=== PATIENT | female | born 1975 | race American Indian/Alaskan Native ===

== ENCOUNTER 2017-05-18 11:52 | Emergency (ER) | payer MEDICAID ==
[2017-05-18 12:10] VITALS: BP 151/86
[2017-05-18] MEDS ORDERED: Sodium Chloride 0.9% 1,000 ML IV ONE (12:19)
--- NOTE | 2017-05-18 12:20 | EDM.PDOC ---
ED HPI GENERAL MEDICAL PROBLEM - General Chief Complaint: ENT Problem Stated Complaint: [id number] HARD TIME BREATHING Time Seen by Provider: 05/18/17 12:15 Source of Information: Reports: Patient History Limitations: Reports: No Limitations - History of Present Illness INITIAL COMMENTS - FREE TEXT/NARRATIVE: 41 yo [place] Female c/o cough since saturday with runny nose. Pt. admits to smoking 1ppd cigs. Onset Date: 05/13/17 Onset Time: 12:00 Duration: Day(s): Location: Reports: Chest, Generalized Quality: Reports: Ache Severity: Moderate Associated Symptoms: Reports: Cough, cough w sputum Chest Pain Score (Numeric/FACES): 6 - Related Data Allergies Allergy/AdvReac Type Severity Reaction Status Date / Time No Known Allergies Allergy Verified 05/18/17 11:57 Home Meds: Home Meds . 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 Social & Family History - Family History Family Medical History: Noncontributory - Tobacco Use Smoking Status *Q: Current Every Day Smoker Years of Tobacco use: 28 Packs/Tins Daily: 1 - Caffeine Use Caffeine Use: Reports: None - Recreational Drug Use Recreational Drug Use: No ED ROS GENERAL - Review of Systems Review Of Systems: See Below Constitutional: Reports: Chills, Weakness, Fatigue HEENT: Reports: No Symptoms Respiratory: Reports: Cough Cardiovascular: Reports: No Symptoms, Chest Pain Endocrine: Reports: No Symptoms GI/Abdominal: Reports: No Symptoms : Reports: No Symptoms Musculoskeletal: Reports: No Symptoms Skin: Reports: No Symptoms Neurological: Reports: No Symptoms Psychiatric: Reports: No Symptoms Hematologic/Lymphatic: Reports: No Symptoms Immunologic: Reports: No Symptoms ED EXAM, GENERAL - Physical Exam Exam: See Below Exam Limited By: No Limitations General Appearance: Alert, WD/WN, Obese Eye Exam: Bilateral Eye: EOMI Ears: Normal External Exam Ear Exam: Bilateral Ear: TM normal Nose: Normal Inspection, Normal Mucosa Throat/Mouth: Normal Inspection, Normal Lips Head: Atraumatic, Normocephalic Neck: Normal Inspection, Supple Respiratory/Chest: No Respiratory Distress, No Accessory Muscle Use, Rhonchi, Wheezing Cardiovascular: Normal Peripheral Pulses, Regular Rate, Rhythm GI/Abdominal: Normal Bowel Sounds Back Exam: Normal Inspection Extremities: Normal Inspection Neurological: Alert, Oriented, CN II-XII Intact Psychiatric: Normal Affect, Normal Mood Skin Exam: Warm, Dry Lymphatic: No Adenopathy Course - Vital Signs Last Recorded V/S: Last Vital Signs Temp 36.3 C 05/18/17 12:08 Pulse 99 05/18/17 12:08 Resp 20 05/18/17 12:08 BP 151/86 H 05/18/17 12:08 Pulse Ox 92 L 05/18/17 12:08 - Orders/Labs/Meds Orders: Active Orders 24 hr Category Date Time Status RT Aerosol Therapy [RC] ASDIRECTED Care 05/18/17 12:37 Active RT Aerosol Therapy [RC] ASDIRECTED Care 05/18/17 12:38 Active Chest 2V [CR] Urgent Exams 05/18/17 12:19 Ordered Sodium Chloride 0.9% [Normal Saline] 1,000 ml Med 05/18/17 12:19 Active IV .BOLUS Medication Orders Sodium Chloride (Normal Saline) 1,000 mls @ 999 mls/hr IV .BOLUS ONE Stop: 05/18/17 13:19 Last Admin: 05/18/17 12:34 Dose: 999 mls/hr Labs: Laboratory Tests 05/18/17 Range/Units 12:25 WBC 10.2 H (5.0-10.0) 10^3/uL RBC 4.89 (4.2-5.4) 10^6/uL Hgb 14.8 (12.0-16.0) g/dL Hct 45.8 (37.0-47.0) % MCV 93.7 (80-100) fL MCH 30.3 (27.0-34.0) pg MCHC 32.3 L (33.0-35.0) g/dL Plt Count 221 (150-450) 10^3/uL Neut % (Auto) 62.7 (42.2-75.2) % Lymph % (Auto) 26.4 (20.5-50.1) % [place] % (Auto) 7.3 (2-8) % Eos % (Auto) 3.1 H (1.0-3.0) % Baso % (Auto) 0.5 (0.0-1.0) % Meds: Medications Generic Name Dose Route Start Last Admin Trade Name Juan PRN Reason Stop Dose Admin Sodium Chloride 1,000 mls @ 999 mls/hr 05/18/17 12:19 05/18/17 12:34 Normal Saline IV 05/18/17 13:19 999 mls/hr .BOLUS ONE Administration Discontinued Medications Generic Name Dose Route Start Last Admin Trade Name Juan PRN Reason Stop Dose Admin Albuterol/Ipratropium 3 ml 05/18/17 12:37 Duoneb 3.0-0.5 Mg/3 Ml NEB 05/18/17 12:38 ONETIME ONE Albuterol/Ipratropium 3 ml 05/18/17 12:38 Duoneb 3.0-0.5 Mg/3 Ml NEB 05/18/17 12:39 ONETIME ONE Departure - Departure Time of Disposition: 12:41 Disposition: Home, Self-Care 01 Condition: Fair Clinical Impression: Bronchitis, Tobacco abuse disorder - Discharge Information Forms: ED Department Discharge Additional Instructions: Stop Smoking Cigarettes Increase intake of Water and Juice ( No Dairy Products) Take Medication as prescribed only: Zithromax Demond ( 1 pack), Phenergan Plain Syrup ( 4ounces) and ProAir MDI 2 puffs Q 4-6 hours F/U w/ PCP - My Orders Last 24 Hours: My Active Orders 05/18/17 12:19 Chest 2V [CR] Urgent Sodium Chloride 0.9% [Normal Saline] 1,000 ml IV .BOLUS 05/18/17 12:37 RT Aerosol Therapy [RC] ASDIRECTED 05/18/17 12:38 RT Aerosol Therapy [RC] ASDIRECTED - Assessment/Plan Last 24 Hours: My Active Orders 05/18/17 12:19 Chest 2V [CR] Urgent Sodium Chloride 0.9% [Normal Saline] 1,000 ml IV .BOLUS 05/18/17 12:37 RT Aerosol Therapy [RC] ASDIRECTED 05/18/17 12:38 RT Aerosol Therapy [RC] ASDIRECTED
[2017-05-18] MEDS ORDERED: Albuterol/Ipratropium 3.0-0.5 MG/3 ML Neb Soln NEB ONE ×2 (12:37→12:38)
== END 2017-05-18 13:31 | disposition home or self-care (01) ==
LOC: DL.ED 11:52
DX: J40 Bronchitis, not specified as acute or chronic (principal); F17.210 Nicotine dependence, cigarettes, uncomplicated
CPT/HCPCS: 36415; 71020; 85025; 94640; 96360; 99283; J7030

== ENCOUNTER 2018-04-10 18:50 | Emergency (ER) | payer MEDICAID ==
[2018-04-10 21:59] VITALS: BP 145/88
--- NOTE | 2018-04-10 22:02 | EDM.PDOC ---
ED HPI GENERAL MEDICAL PROBLEM - General Chief Complaint: Wound Recheck Stated Complaint: ABD PRESSURE AFTER SURG [id number] Time Seen by Provider: 04/10/18 19:30 Source of Information: Reports: Patient History Limitations: Reports: No Limitations - History of Present Illness INITIAL COMMENTS - FREE TEXT/NARRATIVE: C/o low abdominal pain presure, increased frequency of voiding. No burning with urination. Hx vag hyst 2 weeks ago. Reports on boat all weekend pain worse since. No fever or chills. No change in vaginal spotting. 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 Lower Abdomen Pain Score (Numeric/FACES): 7 - Related Data Allergies Allergy/AdvReac Type Severity Reaction Status Date / Time No Known Allergies Allergy Verified 04/10/18 19:17 Home Meds: Home Meds . 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 ED EXAM, GENERAL - Physical Exam Exam: See Below Exam Limited By: No Limitations General Appearance: Alert, No Apparent Distress Eye Exam: Bilateral Eye: EOMI Ears: Normal External Exam Nose: Normal Inspection Throat/Mouth: Normal Inspection Head: Atraumatic, Normocephalic Neck: Normal Inspection Respiratory/Chest: No Respiratory Distress, Lungs Clear, Normal Breath Sounds Cardiovascular: Normal Peripheral Pulses, Regular Rate, Rhythm GI/Abdominal: Normal Bowel Sounds, Soft, Tender (mild supropubic with palpation , greater pain with movment) (Female) Exam: Normal External Exam, Normal Speculum Exam. No: Vaginal Bleeding (none noted in canal), Vaginal Discharge Extremities: Normal Inspection Neurological: Alert, Oriented Skin Exam: Warm, Dry, Intact (surgical lap sites healing, intact no redness) Course - Vital Signs Last Recorded V/S: Last Vital Signs Temp 97.8 F 04/10/18 21:58 Pulse 74 04/10/18 21:58 Resp 16 04/10/18 21:58 BP 145/88 H 04/10/18 21:58 Pulse Ox 98 04/10/18 21:58 - Orders/Labs/Meds Labs: Laboratory Tests 04/10/18 Range/Units 20:13 Urine Color Yellow (YELLOW) Urine Appearance Slightly cloudy (CLEAR) Urine pH 6.5 (5.0-9.0) Ur Specific [place] 1.010 (1.005-1.030) Urine Protein Negative (NEGATIVE) Urine Glucose (UA) Negative (NEGATIVE) Urine Ketones Negative (NEGATIVE) Urine Occult Blood Negative (NEGATIVE) Urine Nitrite Negative (NEGATIVE) Urine Bilirubin Negative (NEGATIVE) Urine Urobilinogen 0.2 (0.2-1.0) mg/dL Ur Leukocyte Esterase Negative (NEGATIVE) Urine RBC Not seen /HPF Urine WBC 0-5 (0-5/HPF) /HPF Ur Epithelial Cells Few /HPF Urine Bacteria Few (0-FEW/HPF) /HPF Departure - Departure Time of Disposition: 21:55 Disposition: Home, Self-Care 01 Condition: Good Clinical Impression: S/P vaginal hysterectomy, Abdominal pain - Discharge Information Instructions: Vaginal Hysterectomy, Care After Forms: ED Department Discharge Additional Instructions: rest light activity follow with gynecologist tomorrow urgent follow up fever, bloating or increased vaginal bleeding
== END 2018-04-10 22:02 | disposition home or self-care (01) ==
LOC: DL.ED 18:50
DX: R10.30 Lower abdominal pain, unspecified (principal); F17.210 Nicotine dependence, cigarettes, uncomplicated; Z90.710 Acquired absence of both cervix and uterus
CPT/HCPCS: 81001; 99284

== ENCOUNTER 2019-10-22 19:21 | Emergency (ER) | payer BC, MEDICAID ==
[2019-10-22] MEDS ORDERED: Acetaminophen/HYDROcodone 325-10 MG Tab PO ONE (19:22)
--- NOTE | 2019-10-22 19:38 | EDM.PDOC ---
ED HPI GENERAL MEDICAL PROBLEM - General Stated Complaint: HURTS TO TOUCH CHEST Time Seen by Provider: 10/22/19 19:35 Source of Information: Reports: Patient History Limitations: Reports: No Limitations - History of Present Illness INITIAL COMMENTS - FREE TEXT/NARRATIVE: onset yesterday while watching TV. constant and worse when pushes on chest. appetite normal. denies trauma. Mid-Anterior Chest Pain Score (Numeric/FACES): 7 - Related Data Allergies Allergy/AdvReac Type Severity Reaction Status Date / Time No Known Allergies Allergy Verified 04/10/18 19:17 Home Meds: Home Meds . 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 ED EXAM, GENERAL - Physical Exam Exam: See Below Exam Limited By: No Limitations General Appearance: Alert, WD/WN, No Apparent Distress Ears: Hearing Grossly Normal Throat/Mouth: Normal Voice, No Airway Compromise Head: Atraumatic Neck: Non-Tender, Full Range of Motion Respiratory/Chest: No Respiratory Distress, No Accessory Muscle Use, Rhonchi, Other (mild sternal tenderness to palpation). No: Decreased Breath Sounds Cardiovascular: Regular Rate, Rhythm GI/Abdominal: Soft, Non-Tender Neurological: Alert, Oriented, Normal Cognition, Normal Gait, No Motor/Sensory Deficits Psychiatric: Normal Affect, Normal Mood Skin Exam: Warm, Dry, Normal Color Lymphatic: No Adenopathy Course - Vital Signs Last Recorded V/S: Last Vital Signs Temp 36.0 C 10/22/19 19:26 Pulse 94 10/22/19 19:26 Resp 18 10/22/19 19:26 BP 159/91 H 10/22/19 19:26 Pulse Ox 98 10/22/19 19:26 - Orders/Labs/Meds Orders: Active Orders 24 hr Category Date Time Status Chest 1V Frontal [CR] Urgent Exams 10/22/19 19:32 Taken Labs: Laboratory Tests 10/22/19 10/22/19 Range/Units 19:41 19:41 WBC 14.5 H (5.0-10.0) 10^3/uL RBC 5.31 (4.2-5.4) 10^6/uL Hgb 15.8 (12.0-16.0) g/dL Hct 47.6 H (37.0-47.0) % MCV 89.6 D (80-100) fL MCH 29.8 (27.0-34.0) pg MCHC 33.2 (33.0-35.0) g/dL Plt Count 248 (150-450) 10^3/uL Neut % (Auto) 61.7 (42.2-75.2) % Lymph % (Auto) 25.3 (20.5-50.1) % [place] % (Auto) 10.1 H (2-8) % Eos % (Auto) 2.1 (1.0-3.0) % Baso % (Auto) 0.8 (0.0-1.0) % Add Manual Diff Yes Neutrophils % (Manual) 64 (42-75) % Lymphocytes % (Manual) 24 (20-50) % Monocytes % (Manual) 10 H (2-8) % Eosinophils % (Manual) 2 (1-3) % Sodium 137 (135-145) mmol/L Potassium 3.5 L (3.6-5.0) mmol/L Chloride 103 (101-111) mmol/L Carbon Dioxide 25.0 (21.0-31.0) mmol/L Anion Gap 12.5 BUN 11 (7-18) mg/dL Creatinine 0.5 L (0.6-1.3) mg/dL Est Cr Clr Drug Dosing 126.57 mL/min Estimated GFR (MDRD) > 60 BUN/Creatinine Ratio 22.00 Glucose 127 H (74-105) mg/dL Calcium 8.9 (8.4-10.2) mg/dl Total Bilirubin 0.5 (0.2-1.0) mg/dL AST 17 (10-42) IU/L ALT 18 (10-60) IU/L Alkaline Phosphatase 74 (42-121) IU/L Troponin I < 0.02 (0.00-0.02) ng/ml Total Protein 7.4 (6.7-8.2) g/dl Albumin 4.1 (3.2-5.5) g/dl Globulin 3.3 Albumin/Globulin Ratio 1.24 - Re-Assessments/Exams Free Text/Narrative Re-Assessment/Exam: 10/22/19 20:29 results discussed with pt who is feeling ok right now. Departure - Departure Time of Disposition: 20:30 Disposition: Home, Self-Care 01 Condition: Good Clinical Impression: Chest pain, atypical Instructions: Nonspecific Chest Pain, [id number] Forms: ED Department Discharge Additional Instructions: 1) avoid fatty fried oily spicy foods 2) see clinic tomorrow for GALL BLADDER ULTRASOUND rx togo; norco 10 x 1 Sepsis Event Note - Focused Exam Vital Signs: Vital Signs Temp Pulse Resp BP Pulse Ox 10/22/19 19:26 36.0 C 94 18 159/91 H 98 Date Exam was Performed: 10/22/19 Time Exam was Performed: 20:29 - My Orders Last 24 Hours: My Active Orders 10/22/19 19:32 Chest 1V Frontal [CR] Urgent - Assessment/Plan Last 24 Hours: My Active Orders 10/22/19 19:32 Chest 1V Frontal [CR] Urgent
[2019-10-22 20:02] VITALS: BP 159/91; PULSE 94
[2019-10-22 20:10] LABS: ANION GAP 12.5; CHLORIDE,CL 103 mmol/L (101-111); SODIUM,NA 137 mmol/L (135-145)
[2019-10-22] MEDS ORDERED: Acetaminophen/HYDROcodone 325-10 MG Tab ONE (20:41)
== END 2019-10-22 20:47 | disposition home or self-care (01) ==
LOC: DL.ED 19:21
DX: R07.89 Other chest pain (principal); Z90.710 Acquired absence of both cervix and uterus
CPT/HCPCS: 36415; 71045; 80053; 84484; 85025; 99285; A9270

== ENCOUNTER 2019-11-30 01:43 | Emergency (ER) | payer BC ==
[2019-11-30 02:03] VITALS: BP 168/92; PULSE 86
--- NOTE | 2019-11-30 02:04 | EDM.PDOC ---
ED HPI GENERAL MEDICAL PROBLEM - General Stated Complaint: NEEDS RING CUT OFF OF JERRICA. LEFT RING FINGER Time Seen by Provider: 11/30/19 01:50 Source of Information: Reports: Patient, RN, RN Notes Reviewed History Limitations: Reports: No Limitations - History of Present Illness INITIAL COMMENTS - FREE TEXT/NARRATIVE: patient to ER with complaint of swelling of hands, and ring tight on the left ring finger. Patient states that she generally takes her rings off before she goes to bed. Patient states the pain in the left finger awoke her from sleep. Onset: Today, Sudden - Related Data Allergies Allergy/AdvReac Type Severity Reaction Status Date / Time No Known Allergies Allergy Verified 04/10/18 19:17 Home Meds: Home Meds . 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 ED EXAM, GENERAL - Physical Exam Exam: See Below Exam Limited By: No Limitations General Appearance: Alert, WD/WN, Mild Distress Eye Exam: Bilateral Eye: EOMI, Normal Inspection Ears: Normal External Exam, Hearing Grossly Normal Nose: Normal Inspection Throat/Mouth: Normal Inspection, Normal Voice, No Airway Compromise Head: Atraumatic, Normocephalic Neck: Normal Inspection Respiratory/Chest: No Respiratory Distress, Lungs Clear, Normal Breath Sounds, No Accessory Muscle Use Cardiovascular: Normal Peripheral Pulses, Regular Rate, Rhythm, No Gallop, No JVD, No Murmur, No Rub, Other (mild swelling of the fingers) Peripheral Pulses: 2+: Radial (L), Radial (R) GI/Abdominal: Normal Bowel Sounds, Soft, Non-Tender (Female) Exam: Deferred Rectal (Female) Exam: Deferred Back Exam: Normal Inspection, Full Range of Motion Extremities: Normal Inspection, Normal Range of Motion, Non-Tender, Normal Capillary Refill, No Pedal Edema Neurological: Alert, Oriented, CN II-XII Intact, Normal Cognition, Normal Gait, Normal Reflexes, No Motor/Sensory Deficits Psychiatric: Normal Affect, Normal Mood Skin Exam: Warm, Dry, Intact, Normal Color, No Rash Lymphatic: No Adenopathy ED GENERAL MEDICAL PROCEDURES - Additional/Other Procedure(s) Other (Free Text) Procedure(s): wedding ring and band removed from the left ring finger with manual ring cutter. No complications. Departure - Departure Time of Disposition: 02:03 Disposition: Home, Self-Care 01 Condition: Good Clinical Impression: Ring or other jewelry causing external constriction, initial encounter - Discharge Information *PRESCRIPTION DRUG MONITORING PROGRAM REVIEWED*: No *COPY OF PRESCRIPTION DRUG MONITORING REPORT IN PATIENT CHELSEA: No
== END 2019-11-30 02:14 | disposition home or self-care (01) ==
LOC: DL.ED 01:43
DX: S60.445A External constriction of left ring finger, initial encounter (principal); W49.04XA Ring or other jewelry causing external constriction, initial encounter
CPT/HCPCS: 99283

== ENCOUNTER 2020-03-18 23:19 | Emergency (ER) | payer BC ==
[2020-03-19 00:02] LABS: ANION GAP 11.6 mEq/L (7-13); CHLORIDE,CL 104 mmol/L (98-107); SODIUM,NA 138 mmol/L (136-145)
[2020-03-19] MEDS ORDERED: Iopamidol 612 MG/ML 100 ML Bottle IVPUSH ONE (00:16)
[2020-03-19] MEDS ORDERED: Ondansetron 4 MG/2 ML SDV IVPUSH ONE (00:16)
[2020-03-19] MEDS ORDERED: Sodium Chloride 0.9% 1,000 ML IV ONE (00:16)
--- NOTE | 2020-03-19 01:07 | CT ---
PROCEDURE INFORMATION: Exam: CT Abdomen And Pelvis With Contrast Exam date and time: 03/19/2020 12:47 AM Age: 44 years old Clinical indication: Other: Pain; Additional info: Mid to rlq abdominal pain wbc 11 TECHNIQUE: Imaging protocol: Computed tomography of the abdomen and pelvis with intravenous contrast. Radiation optimization: All CT scans at this facility use at least one of these dose optimization techniques: automated exposure control; mA and/or kV adjustment per patient size (includes targeted exams where dose is matched to clinical indication); or iterative reconstruction. Contrast material: [id number]; Contrast volume: 100 ml; Contrast route: INTRAVENOUS (IV); COMPARISON: CT Abdomen Pelvis w Cont 05/25/2016 3:57 PM FINDINGS: Liver: Normal. No mass. Gallbladder and bile ducts: Status post cholecystectomy. Pancreas: Normal. No ductal dilation. Spleen: Normal. No splenomegaly. Adrenals: Normal. No mass. Kidneys and ureters: Normal. No hydronephrosis. Stomach and bowel: Unremarkable. No obstruction. No mucosal thickening. Appendix: Normal appendix right lower quadrant Intraperitoneal space: Moderate free fluid in the pelvis with possible left-sided pelvic mass measuring approximately 4.5 cm. Pelvic ultrasound suggested. Vasculature: Unremarkable. No abdominal aortic aneurysm. Lymph nodes: Unremarkable. No enlarged lymph nodes. Bladder: Unremarkable as visualized. Reproductive: Status post hysterectomy Bones/joints: Unremarkable. No acute fracture. Soft tissues: Unremarkable. IMPRESSION: 1. Normal appendix right lower quadrant 2. Status post hysterectomy 3. Moderate free fluid in the pelvis with possible left-sided pelvic mass measuring approximately 4.5 cm. Pelvic ultrasound suggested.
[2020-03-19] MEDS ORDERED: Ketorolac 30 MG/ML SDV IVPUSH ONE (01:24)
--- NOTE | 2020-03-19 01:27 | EDM.PDOC ---
ED HPI GENERAL MEDICAL PROBLEM - General Chief Complaint: Abdominal Pain Stated Complaint: ABDOMINAL PAIN Time Seen by Provider: 03/18/20 23:35 Source of Information: Reports: Patient History Limitations: Reports: No Limitations - History of Present Illness INITIAL COMMENTS - FREE TEXT/NARRATIVE: ED with c/o sudden onset mid to right sharp abdominal pain. Started while attempting to void. Hx endometriosis. Still has appendix. No hx constipation. No fever chills, No nausea or vomiting. No diarrhea. No cough. Has had remote ovarian cysts and felt slightly similar. Lower Abdomen Pain Score (Numeric/FACES): 7 - Related Data Allergies Allergy/AdvReac Type Severity Reaction Status Date / Time No Known Allergies Allergy Verified 03/18/20 23:47 Home Meds: Home Meds . [No Known Home Meds] 05/18/17 [History] Past Medical History - Past Health History Medical/Surgical History: Denies Medical/Surgical History HEENT History: Reports: Other (See Below) Other HEENT History: glaucoma surg. 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 ED EXAM, RENAL/ - Physical Exam Exam: See Below Exam Limited By: No Limitations General Appearance: Alert, No Apparent Distress Ears: Normal External Exam Nose: Normal Inspection Throat/Mouth: Normal Inspection Neck: Normal Inspection Respiratory/Chest: No Respiratory Distress, Lungs Clear, Normal Breath Sounds Cardiovascular: Regular Rate, Rhythm GI/Abdominal: Normal Bowel Sounds, Soft, Tender (suprapubic and Mild RLQ, No distension. ). No: Guarding, Rebound Extremities: Normal Range of Motion Neurological: Alert, Oriented, Normal Cognition, Normal Gait Psychiatric: Normal Affect Skin Exam: Warm, Dry, Intact, Normal Color Course - Vital Signs Last Recorded V/S: Last Vital Signs Temp 97.6 F 03/19/20 01:30 Pulse 87 03/19/20 01:30 Resp 19 03/19/20 01:30 BP 129/78 03/19/20 01:30 Pulse Ox 100 03/19/20 01:30 - Orders/Labs/Meds Labs: Laboratory Tests 03/18/20 03/18/20 03/18/20 Range/Units 23:34 23:37 23:37 WBC 11.6 H (5.0-10.0) 10^3/uL RBC 5.18 (4.2-5.4) 10^6/uL Hgb 15.9 (12.0-16.0) g/dL Hct 47.3 H (37.0-47.0) % MCV 91.3 (80-100) fL MCH 30.7 (27.0-34.0) pg MCHC 33.6 (33.0-35.0) g/dL Plt Count 237 (150-450) 10^3/uL Neut % (Auto) 54.8 (42.2-75.2) % Lymph % (Auto) 33.9 (20.5-50.1) % [place] % (Auto) 7.4 (2-8) % Eos % (Auto) 3.2 H (1.0-3.0) % Baso % (Auto) 0.7 (0.0-1.0) % Sodium 138 (136-145) mmol/L Potassium 3.6 (3.5-5.1) mmol/L Chloride 104 (98-107) mmol/L Carbon Dioxide 26 (21-32) mmol/L Anion Gap 11.6 (7-13) mEq/L BUN 8 (7-18) mg/dL Creatinine 0.72 (0.55-1.02) mg/dL Est Cr Clr Drug Dosing 87.90 mL/min Estimated GFR (MDRD) > 60 BUN/Creatinine Ratio 11.1 (No establ ref range) Glucose 126 H (74-99) mg/dL Calcium 8.5 (8.5-10.1) mg/dL Total Bilirubin 0.4 (0.2-1.0) mg/dL AST 13 L (15-37) U/L ALT 23 (14-59) U/L Alkaline Phosphatase 79 (46-116) U/L Total Protein 7.1 (6.4-8.2) g/dL Albumin 3.4 (3.4-5.0) g/dL Globulin 3.7 Albumin/Globulin Ratio 0.9 Amylase 34 (25-115) U/L Lipase 97 (73-393) U/L HCG, Qual Negative Urine Color Yellow (YELLOW) Urine Appearance Slightly cloudy (CLEAR) Urine pH 5.5 (5.0-9.0) Ur Specific [place] >= 1.030 (1.005-1.030) Urine Protein Negative (NEGATIVE) Urine Glucose (UA) Negative (NEGATIVE) Urine Ketones Negative (NEGATIVE) Urine Occult Blood Trace-intact H (NEGATIVE) Urine Nitrite Negative (NEGATIVE) Urine Bilirubin Negative (NEGATIVE) Urine Urobilinogen 0.2 (0.2-1.0) mg/dL Ur Leukocyte Esterase Negative (NEGATIVE) Urine RBC 5-10 H /HPF Urine WBC 0-5 (0-5/HPF) /HPF Ur Epithelial Cells Few (NOT SEEN) /HPF Amorphous Sediment Rare (NOT SEEN) /HPF Urine Bacteria Rare (0-FEW/HPF) /HPF Urine Mucus Moderate H (NOT SEEN) /LPF Ethyl Alcohol < 3 (0) mg/dL Meds: Medications Discontinued Medications Generic Name Dose Route Start Last Admin Trade Name Freq PRN Reason Stop Dose Admin Sodium Chloride 1,000 mls @ 999 mls/hr 03/19/20 00:16 03/19/20 00:28 Normal Saline IV 03/19/20 01:16 999 mls/hr .BOLUS ONE Administration Iopamidol 100 ml 03/19/20 00:16 03/19/20 00:27 Isovue-300 (61%) IVPUSH 03/19/20 00:17 100 ml ONETIME ONE Administration Ketorolac Tromethamine 30 mg 03/19/20 01:24 03/19/20 01:26 Toradol IVPUSH 03/19/20 01:25 30 mg ONETIME ONE Administration Ondansetron HCl 4 mg 03/19/20 00:16 03/19/20 00:27 Zofran IVPUSH 03/19/20 00:17 4 mg ONETIME ONE Administration - Re-Assessments/Exams Free Text/Narrative Re-Assessment/Exam: 03/19/20 06:09 Pain improving, still present not as severe, Results reviewed with patient. Departure - Departure Time of Disposition: 01:24 Disposition: Home, Self-Care 01 Condition: Good Clinical Impression: Abdominal pain Qualifiers: Abdominal location: lower abdomen, unspecified Qualified Code(s): R10.30 - Lower abdominal pain, unspecified - Discharge Information *PRESCRIPTION DRUG MONITORING PROGRAM REVIEWED*: No *COPY OF PRESCRIPTION DRUG MONITORING REPORT IN PATIENT [place]: No Instructions: Abdominal Pain, Adult, Dzen-[id number] Referrals: Jacque Ku MD [Primary Care Provider] - Forms: ED Department Discharge Additional Instructions: Clinic follow up this week light activity No heavy lifting alternate tylenol and ibuprofen every 4 hours as needed for discomfort urgent follow up increased pain, fever chills or repeated vomiting Sepsis Event Note (ED) - Evaluation Sepsis Screening Result: No Definite Risk - Focused Exam Vital Signs: Vital Signs Temp Pulse Resp BP Pulse Ox 03/19/20 01:30 97.6 F 87 19 129/78 100 03/19/20 00:29 97.8 F 90 19 127/76 97 03/18/20 23:34 97.6 F 91 19 128/81 100
[2020-03-19 01:31] VITALS: BP 129/78; PULSE 87
== END 2020-03-19 01:43 | disposition home or self-care (01) ==
LOC: DL.ED 23:19
DX: R10.31 Right lower quadrant pain (principal); F17.210 Nicotine dependence, cigarettes, uncomplicated; Z90.49 Acquired absence of other specified parts of digestive tract; Z90.710 Acquired absence of both cervix and uterus; Z98.890 Other specified postprocedural states
CPT/HCPCS: 36415; 74177; 80053; 80307; 81001; 82150; 83690; 84703; 85025; 96374; 96375; 99284; J1885; J2405; J7030; Q9967

== ENCOUNTER 2021-07-21 22:59 | Emergency (ER) | payer BC ==
[2021-07-21] MEDS ORDERED: Aspirin 81 MG Tab.Chew PO ONE (23:08)
[2021-07-21 23:14] VITALS: BP 153/85; PULSE 72
--- NOTE | 2021-07-21 23:32 | EDM.PDOC ---
ED HPI GENERAL MEDICAL PROBLEM - General Chief Complaint: Chest Pain Stated Complaint: CHEST PAIN, BLOOD PRESSURE UP Time Seen by Provider: 07/21/21 23:15 Source of Information: Reports: Patient History Limitations: Reports: No Limitations - History of Present Illness INITIAL COMMENTS - FREE TEXT/NARRATIVE: ED with c/o achest and back pain since am. Reports hx high blood pressure, Stated forgot to take morning atenolol, took at 130pm, BP 170's then. No shortness of breath no nausea, describes as pressure. Reports recent stress with multiple family members passing recently. Smoker. 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 ED EXAM, GENERAL - Physical Exam Exam: See Below Exam Limited By: No Limitations General Appearance: Alert, Anxious Eye Exam: Bilateral Eye: EOMI Ears: Normal External Exam, Hearing Grossly Normal Nose: Normal Inspection Throat/Mouth: Normal Inspection Head: Atraumatic, Normocephalic Neck: Full Range of Motion Respiratory/Chest: No Respiratory Distress, Lungs Clear Cardiovascular: Normal Peripheral Pulses, Regular Rate, Rhythm, No Murmur GI/Abdominal: Normal Bowel Sounds, Soft, Non-Tender Back Exam: Normal Inspection Extremities: Normal Inspection Neurological: Alert, Oriented, Normal Cognition Psychiatric: Anxious Skin Exam: Warm, Dry, Intact, Normal Color #1 Interpretation EKG Date: 07/21/21 Time: 23:05 Rhythm: NSR Rate (Beats/Min): 76 [place]: Normal P-Wave: Present QRS: Normal ST-T: Normal Comparison: NA - No Prior EKG Course - Vital Signs Last Recorded V/S: Last Vital Signs Temp 97.6 F 07/21/21 23:13 Pulse 72 07/21/21 23:13 Resp 20 07/21/21 23:13 BP 153/85 H 07/21/21 23:13 Pulse Ox 98 07/21/21 23:13 - Orders/Labs/Meds Labs: Laboratory Tests 07/21/21 07/21/21 07/22/21 Range/Units 23:22 23:22 01:03 WBC 12.6 H (5.0-10.0) 10^3/uL RBC 4.81 (4.2-5.4) 10^6/uL Hgb 14.7 (12.0-16.0) g/dL Hct 45.2 (37.0-47.0) % MCV 94.0 (80-100) fL MCH 30.6 (27.0-34.0) pg MCHC 32.5 L (33.0-35.0) g/dL Plt Count 230 (150-450) 10^3/uL Neut % (Auto) 54.9 (42.2-75.2) % Lymph % (Auto) 33.4 (20.5-50.1) % [place] % (Auto) 8.2 H (2-8) % Eos % (Auto) 2.9 (1.0-3.0) % Baso % (Auto) 0.6 (0.0-1.0) % Sodium 140 (136-145) mmol/L Potassium 3.5 (3.5-5.1) mmol/L Chloride 103 (98-107) mmol/L Carbon Dioxide 28 (21-32) mmol/L Anion Gap 12.5 (7-13) mEq/L BUN 10 (7-18) mg/dL Creatinine 0.76 (0.55-1.02) mg/dL Est Cr Clr Drug Dosing 82.42 mL/min Estimated GFR (MDRD) > 60 BUN/Creatinine Ratio 13.2 (No establ ref range) Glucose 128 H (70-99) mg/dL Calcium 8.3 L (8.5-10.1) mg/dL Total Bilirubin 0.3 (0.2-1.0) mg/dL AST 12 L (15-37) U/L ALT 22 (14-59) U/L Alkaline Phosphatase 89 (46-116) U/L Troponin I High Sens < 4 < 4 (<=51) pg/mL B-Natriuretic Peptide 5 (0-100) pg/ml Total Protein 6.9 (6.4-8.2) g/dL Albumin 3.2 L (3.4-5.0) g/dL Globulin 3.7 Albumin/Globulin Ratio 0.86 Amylase 38 (25-115) U/L Lipase 117 (73-393) U/L Meds: Medications Discontinued Medications Generic Name Dose Route Start Last Admin Trade Name Freq PRN Reason Stop Dose Admin Aspirin 324 mg 07/21/21 23:08 07/21/21 23:12 Aspirin 81 Mg Tab.Chew PO 07/21/21 23:09 324 mg ONETIME ONE Administration Departure - Departure Time of Disposition: 01:48 Disposition: Home, Self-Care 01 Condition: Good Clinical Impression: Situational anxiety, Non-cardiac chest pain Hypertension Qualifiers: Hypertension type: primary hypertension Qualified Code(s): I10 - Essential (primary) hypertension Instructions: Nonspecific Chest Pain, Adult, Managing Anxiety, Adult Forms: ED Department Discharge Additional Instructions: take blood pressure medication as prescribed decrease or stop smoking clinic follow up next week decrease caffeine bland diet Sepsis Event Note (ED) - Evaluation Sepsis Screening Result: No Definite Risk - Focused Exam Vital Signs: Vital Signs Temp Pulse Resp BP Pulse Ox 07/21/21 23:13 97.6 F 72 20 153/85 H 98
[2021-07-21 23:50] LABS: ANION GAP 12.5 mEq/L (7-13); CHLORIDE,CL 103 mmol/L (98-107); SODIUM,NA 140 mmol/L (136-145)
--- NOTE | 2021-07-22 00:59 | CR ---
PROCEDURE INFORMATION: Exam: XR Chest Exam date and time: 07/21/2021 11:18 PM Age: 45 years old Clinical indication: Other: Chest pain TECHNIQUE: Imaging protocol: XR of the chest. Views: 1 view. COMPARISON: CR Chest 1V Frontal 10/22/2019 8:06 PM FINDINGS: Lungs: No suspicious pulmonary nodules or areas of lung consolidation. Pleural spaces: Unremarkable. No pleural effusion. No pneumothorax. Heart/Mediastinum: Unremarkable. No cardiomegaly. Bones/joints: Age appropriate. IMPRESSION: 1. No active disease of the chest. 2. No significant interval change when compared to the CR Chest 1V Frontal 10/22/2019 8:06 PM.
== END 2021-07-22 02:06 | disposition home or self-care (01) ==
LOC: DL.ED 22:59
DX: R07.9 Chest pain, unspecified (principal); F41.9 Anxiety disorder, unspecified; I10 Essential (primary) hypertension; Z72.0 Tobacco use
CPT/HCPCS: 36415; 71045; 80053; 82150; 83690; 83880; 84484; 85025; 93005; 99285-25; A9270-GY

== ENCOUNTER 2021-09-25 19:56 | Emergency (ER) | payer BC ==
[2021-09-25] MEDS ORDERED: Cyclobenzaprine 10 MG Tab PO ONE (19:57)
[2021-09-25] MEDS ORDERED: Ibuprofen 600 MG Tab PO ONE (19:57)
[2021-09-25] MEDS ORDERED: fentaNYL 100 MCG/2 ML SDV IM ONE (21:10)
[2021-09-25 22:13] VITALS: BP 132/68; PULSE 64
[2021-09-25] MEDS ORDERED: Ibuprofen 600 MG Tab ONE (22:27)
[2021-09-25] MEDS ORDERED: Cyclobenzaprine 10 MG Tab ONE (22:28)
== END 2021-09-25 22:43 | disposition home or self-care (01) ==
LOC: DL.ED 19:56
DX: S16.1XXA Strain of muscle, fascia and tendon at neck level, initial encounter (principal); S00.83XA Contusion of other part of head, initial encounter; M25.551 Pain in right hip; I10 Essential (primary) hypertension; Z88.5 Allergy status to narcotic agent; Z72.0 Tobacco use; W18.39XA Other fall on same level, initial encounter
CPT/HCPCS: 70450; 70486; 72125; 72192; 73130; 99284; A9270

== ENCOUNTER 2022-02-06 12:20 | Emergency (ER) | payer BC ==
[2022-02-06 12:48] VITALS: BP 114/92; PULSE 96
[2022-02-06] MEDS ORDERED: Sodium Chloride 0.9% 10 ML Syringe FLUSH PRN (13:28)
[2022-02-06] MEDS ORDERED: Ketorolac 30 MG/ML SDV IVPUSH ONE (14:04)
[2022-02-06] MEDS ORDERED: diphenhydrAMINE 50 MG/ML SDV IVPUSH ONE (14:04)
[2022-02-06] MEDS ORDERED: Sodium Chloride 0.9% 1,000 ML IV ONE (14:05)
[2022-02-06 14:06] LABS: ANION GAP 9.5 mEq/L (7-13); CHLORIDE,CL 105 mmol/L (98-107); SODIUM,NA 140 mmol/L (136-145)
== END 2022-02-06 16:46 | disposition home or self-care (01) ==
LOC: DL.ED 12:20
DX: R51.9 Headache, unspecified (principal); H53.8 Other visual disturbances; I10 Essential (primary) hypertension; Z88.5 Allergy status to narcotic agent; Z72.0 Tobacco use
CPT/HCPCS: 36415; 70450; 80053; 83735; 85025; 86140; 96374; 96375; 99283; 99284-25; J1200; J1885; J7030

== ENCOUNTER 2023-05-17 22:52 | Emergency (ER) | payer BC ==
[2023-05-17] MEDS ORDERED: Sodium Chloride 0.9% 10 ML Syringe FLUSH PRN (23:07)
[2023-05-17] MEDS ORDERED: Aspirin 81 MG Tab.Chew PO ONE (23:07)
[2023-05-17] MEDS ORDERED: Nitroglycerin 0.4 MG Tab.SL SL ONE (23:08)
[2023-05-17 23:14] LABS: BASOPHILS PERCENT AUTO 0.7 % (0.0-1.0); EOSINOPHILS PERCENT AUTO 2.2 % (1.0-3.0); HEMATOCRIT 46.7 % (37.0-47.0); HEMOGLOBIN 15.5 g/dL (12.0-16.0); LYMPHOCYTES PERCENT AUTO 40.8 % (20.5-50.1); MEAN CORPUSCULAR HEMOGLOBIN 30.7 pg (27.0-34.0); MEAN CORPUSCULAR HGB CONC 33.2 g/dL (33.0-35.0); MEAN CORPUSCULAR VOLUME 92.5 fL (80-100); MONOCYTES PERCENT AUTO 7.6 % (2-8); NEUTROPHILS PERCENT AUTO 48.7 % (42.2-75.2); PLATELET COUNT,PLT 234 10^3/uL (150-450); RED BLOOD CELL COUNT 5.05 10^6/uL (4.2-5.4); WHITE BLOOD CELL COUNT,WBC 12.6 10^3/uL (5.0-10.0)
[2023-05-17 23:34] LABS: A/G RATIO 0.9; ALBUMIN 3.5 g/dL (3.4-5.0); ANION GAP 15.1 mEq/L (7-13); BILIRUBIN TOTAL 0.3 mg/dL (0.2-1.0); CALCIUM 8.7 mg/dL (8.5-10.1); CREATININE 0.82 mg/dL (0.55-1.02); EST CRCL DRUG DOSING (CG) 74.81 mL/min; MAGNESIUM 1.9 mg/dL (1.8-2.4); POTASSIUM,K 3.1 mmol/L (3.5-5.1); PROTEIN TOTAL,TP 7.3 g/dL (6.4-8.2)
[2023-05-18] MEDS ORDERED: Potassium Chloride 10 MEQ Tab.ER PO ONE (01:59)
[2023-05-18 02:34] VITALS: BP 124/76; PULSE 70
== END 2023-05-18 02:22 | disposition home or self-care (01) ==
LOC: DL.ED 22:52
DX: I16.0 Hypertensive urgency (principal); I10 Essential (primary) hypertension; R07.89 Other chest pain; E87.6 Hypokalemia; F17.210 Nicotine dependence, cigarettes, uncomplicated; Z88.5 Allergy status to narcotic agent
CPT/HCPCS: 36415; 80053; 83735; 84484; 85025; 93005; 99285; A9270; 93010; 99284; J3490

== ENCOUNTER 2024-06-25 17:29 | Emergency (ER) | payer BC ==
[2024-06-25 18:52] VITALS: BP 152/95; PULSE 80
== END 2024-06-25 18:49 | disposition left against medical advice (07) ==
LOC: DL.ED 17:29
DX: Z53.21 Procedure and treatment not carried out due to patient leaving prior to being seen by health care provider (principal)

== ENCOUNTER 2024-07-21 12:10 | Emergency (ER) | payer BC ==
[2024-07-21] MEDS ORDERED: Sodium Chloride 0.9% 10 ML Syringe FLUSH PRN (12:23)
[2024-07-21 12:41] LABS: BASOPHILS PERCENT AUTO 0.5 % (0.0-1.0); EOSINOPHILS PERCENT AUTO 2.2 % (1.0-3.0); HEMATOCRIT 47.6 % (37.0-47.0); HEMOGLOBIN 15.3 g/dL (12.0-16.0); LYMPHOCYTES PERCENT AUTO 39.9 % (20.5-50.1); MEAN CORPUSCULAR HEMOGLOBIN 29.5 pg (27.0-34.0); MEAN CORPUSCULAR HGB CONC 32.1 g/dL (33.0-35.0); MEAN CORPUSCULAR VOLUME 91.7 fL (80-100); MONOCYTES PERCENT AUTO 7.8 % (2-8); NEUTROPHILS PERCENT AUTO 49.6 % (42.2-75.2); PLATELET COUNT,PLT 258 10^3/uL (150-450); RED BLOOD CELL COUNT 5.19 10^6/uL (4.2-5.4); WHITE BLOOD CELL COUNT,WBC 11.4 10^3/uL (5.0-10.0)
[2024-07-21] MEDS: Acetaminophen 500 MG Tab PO ONE (12:42)
[2024-07-21] MEDS: Ketorolac 30 MG/ML SDV IVPUSH ONE (12:42)
[2024-07-21 12:45] LABS: APPEARANCE,URINE SLIGHTLY CLOUDY (CLEAR); BILIRUBIN,URINE NEGATIVE (NEGATIVE); COLOR,URINE YELLOW (YELLOW); GLUCOSE,URINE NEGATIVE (NEGATIVE); KETONES,URINE NEGATIVE (NEGATIVE); LEUKOCYTE ESTERASE,URINE NEGATIVE (NEGATIVE); NITRITE,URINE NEGATIVE (NEGATIVE); OCCULT BLOOD,URINE LARGE (NEGATIVE); PH,URINE 5.5 (5.0-9.0); PROTEIN,URINE 30 (NEGATIVE); UROBILINOGEN,URINE 0.2 mg/dL (0.2-1.0)
[2024-07-21 13:03] LABS: LACTIC ACID 1.8 mmol/L (0.4-2.0)
[2024-07-21 13:08] LABS: EPITHELIAL CELLS,URINE MODERATE /HPF (NOT SEEN); MUCUS,URINE MODERATE /LPF (NOT SEEN)
[2024-07-21 13:09] LABS: A/G RATIO 0.9; ALBUMIN 3.5 g/dL (3.4-5.0); ANION GAP 15.4 mEq/L (7-13); BILIRUBIN TOTAL 0.4 mg/dL (0.2-1.0); BUN/CREATININE RATIO 11.5 (No establ ref range); C-REACTIVE PROTEIN 1.32 ng/dL (<=0.50); CREATININE 0.78 mg/dL (0.55-1.02); EST CRCL DRUG DOSING (CG) 77.82 mL/min; POTASSIUM,K 3.4 mmol/L (3.5-5.1); PROTEIN TOTAL,TP 7.2 g/dL (6.4-8.2)
[2024-07-21 13:10] LABS: RBC,URINE 40-50 /HPF (0-5)
[2024-07-21 13:12] LABS: WBC,URINE 0-5 /HPF (0-5/HPF)
[2024-07-21 13:13] LABS: BACTERIA,URINE FEW /HPF (0-FEW/HPF)
[2024-07-21 14:17] VITALS: BP 141/72; PULSE 64
== END 2024-07-21 14:05 | disposition home or self-care (01) ==
LOC: DL.ED 12:10
DX: N13.2 Hydronephrosis with renal and ureteral calculous obstruction (principal); I10 Essential (primary) hypertension; Z90.49 Acquired absence of other specified parts of digestive tract; Z79.899 Other long term (current) drug therapy; Z88.5 Allergy status to narcotic agent
CPT/HCPCS: 36415; 74176; 80053; 81001; 81025; 83605; 83690; 85025; 86140; 96374; 99284; A9270; J1885

== ENCOUNTER 2024-09-03 05:24 | Day surgery (SDC) | payer BC ==
[2024-09-03] MEDS ORDERED: fentaNYL 100 MCG/2 ML SDV IV ONE (05:25)
[2024-09-03] MEDS ORDERED: Midazolam 1 MG/ML 2 ML SDV IV ONE (05:25)
[2024-09-03] MEDS: Dextrose 5%-0.45% NaCl 1,000 ML IV SCH (05:44)
[2024-09-03] MEDS ORDERED: fentaNYL 100 MCG/2 ML SDV ONE (06:13)
[2024-09-03] MEDS ORDERED: Midazolam 1 MG/ML 2 ML SDV ONE (06:13)
[2024-09-03] MEDS: fentaNYL 100 MCG/2 ML SDV IV ONE ×4 (06:29→06:44)
[2024-09-03] MEDS: Midazolam 1 MG/ML 2 ML SDV IV ONE ×6 (06:30→06:41)
[2024-09-03 08:20] VITALS: BP 104/63; PULSE 61
== END 2024-09-03 08:34 | disposition home or self-care (01) ==
LOC: DL.ENDO 05:24
PROVIDERS: ATTEND Internal Medicine Gastroenterology
DX: Z12.11 Encounter for screening for malignant neoplasm of colon (principal); D12.8 Benign neoplasm of rectum; D12.5 Benign neoplasm of sigmoid colon; K64.8 Other hemorrhoids; F17.210 Nicotine dependence, cigarettes, uncomplicated
CPT/HCPCS: 45385; J2250; J3010; J7799

== ENCOUNTER 2024-12-08 19:10 | Emergency (ER) | payer BC ==
[2024-12-08] MEDS: Sodium Chloride 0.9% 1,000 ML IV ONE (20:44)
[2024-12-08 20:47] LABS: HEMATOCRIT 51.2 % (37.0-47.0); HEMOGLOBIN 16.6 g/dL (12.0-16.0); MEAN CORPUSCULAR HEMOGLOBIN 29.7 pg (27.0-34.0); MEAN CORPUSCULAR HGB CONC 32.4 g/dL (33.0-35.0); MEAN CORPUSCULAR VOLUME 91.8 fL (80-100); PLATELET COUNT,PLT 247 10^3/uL (150-450); RED BLOOD CELL COUNT 5.58 10^6/uL (4.2-5.4); WHITE BLOOD CELL COUNT,WBC 13.6 10^3/uL (5.0-10.0)
[2024-12-08 20:49] LABS: BASOPHILS PERCENT AUTO 0.4 % (0.0-1.0); EOSINOPHILS PERCENT AUTO 2.5 % (1.0-3.0); LYMPHOCYTES PERCENT AUTO 28.7 % (20.5-50.1); MONOCYTES PERCENT AUTO 7.7 % (2-8); NEUTROPHILS PERCENT AUTO 60.7 % (42.2-75.2)
[2024-12-08 21:07] LABS: A/G RATIO 0.9; ALANINE AMINOTRANSFERASE,ALT 23 U/L (14-59); ALBUMIN 3.7 g/dL (3.4-5.0); ALKALINE PHOSPHATASE 115 U/L (46-116); ANION GAP 12.3 mEq/L (7-13); ASPARTATE AMNIOTRANSFERASE,AST 13 U/L (15-37); BILIRUBIN TOTAL 0.4 mg/dL (0.2-1.0); BLOOD UREA NITROGEN,BUN 12 mg/dL (7-18); BUN/CREATININE RATIO 12.9 (No establ ref range); CARBON DIOXIDE,CO2 30 mmol/L (21-32); CHLORIDE,CL 101 mmol/L (98-107); CREATININE 0.93 mg/dL (0.55-1.02); EST CRCL DRUG DOSING (CG) 64.58 mL/min; GLUCOSE RANDOM 156 mg/dL (70-99); POTASSIUM,K 3.3 mmol/L (3.5-5.1); PROTEIN TOTAL,TP 7.7 g/dL (6.4-8.2); SODIUM,NA 140 mmol/L (136-145)
[2024-12-08 21:12] LABS: BAND PERCENT MAN 2 %; EOSINOPHILS PERCENT MAN 3 % (1-3); LYMPHOCYTES PERCENT MAN 29 % (20-50); MONOCYTES PERCENT MAN 10 % (2-8); SEG NEUTROPHILS PERCENT MAN 56 % (42-75)
[2024-12-08 21:21] LABS: CALCIUM 9.3 mg/dL (8.5-10.1); ESTIMATED GFR 76 mL/min (>=60)
[2024-12-08] MEDS: Potassium Chloride 10 MEQ Tab.ER PO ONE (21:45)
[2024-12-08 23:33] LABS: APPEARANCE,URINE CLEAR (CLEAR); BILIRUBIN,URINE NEGATIVE (NEGATIVE); COLOR,URINE YELLOW (YELLOW); GLUCOSE,URINE NEGATIVE (NEGATIVE); KETONES,URINE NEGATIVE (NEGATIVE); LEUKOCYTE ESTERASE,URINE NEGATIVE (NEGATIVE); NITRITE,URINE NEGATIVE (NEGATIVE); OCCULT BLOOD,URINE TRACE-INTACT (NEGATIVE); PROTEIN,URINE NEGATIVE (NEGATIVE); UROBILINOGEN,URINE 0.2 mg/dL (0.2-1.0)
[2024-12-08 23:40] LABS: BACTERIA,URINE FEW /HPF (0-FEW/HPF); EPITHELIAL CELLS,URINE FEW /HPF (NOT SEEN); MUCUS,URINE FEW /LPF (NOT SEEN); RBC,URINE 0-5 /HPF (0-5); WBC,URINE 0-5 /HPF (0-5/HPF)
[2024-12-09 05:44] VITALS: PULSE 80
[2024-12-09 05:45] VITALS: BP 127/79
== END 2024-12-09 00:11 | disposition home or self-care (01) ==
LOC: DL.ED 19:10
DX: E86.9 Volume depletion, unspecified (principal); E87.6 Hypokalemia; D72.829 Elevated white blood cell count, unspecified; I10 Essential (primary) hypertension; F17.210 Nicotine dependence, cigarettes, uncomplicated; Z86.16 Personal history of COVID-19; Z90.49 Acquired absence of other specified parts of digestive tract; Z90.710 Acquired absence of both cervix and uterus; Z88.5 Allergy status to narcotic agent; Z88.8 Allergy status to other drugs, medicaments and biological substances
CPT/HCPCS: 36415; 80053; 81001; 83735; 84484; 85025; 93005; 93010; 96360; 99284; 99284-25; A9270-GY; J7030